=== PATIENT | male | born 2000 | race Caucasian/White ===

== ENCOUNTER 2022-07-13 18:45 | Inpatient (IN) | payer OTHER ==
[2022-07-13] MEDS ORDERED: fentaNYL 50 mcg/mL 1 mL Vial ONE ×2 (19:08→20:16)
[2022-07-13] MEDS ORDERED: CEFAZOLIN 2 GM VIAL ONE (19:08)
[2022-07-13 19:11] LABS: #Eosinphils 0.1 thou/uL (0.0-0.7); #Lymphocytes 1.8 thou/uL (1.20-3.40); #Monocytes 0.6 thou/uL (0.11-0.59); #Neutrophils 5.6 thou/uL (1.40-6.50); %Basophils 0.5 % (0.0-1.0); %Eosinophils 1.7 % (0.0-10.0); %Lymphocytes 21.9 % (21.0-51.0); %Monocytes 6.9 % (0.0-10.0); %Neutrophils 69.1 % (42.0-75.0); Mean Corpuscular HGB CONC 34.3 g/dL (32.0-36.0); Mean Corpuscular Hemoglobin 30.8 pg (27.0-31.0); Mean Corpuscular Volume 89.8 fl (78.0-98.0); Mean Platelet Volume 7.8 fL (7.4-10.4); Platelet Count 208 10x3/uL (130-400); RBC Distribution Width 11.3 % (11.5-14.5); Red Blood Cell (RBC) Count 4.54 mill/uL (4.70-6.10); White Blood Cell (WBC) Count 8.1 10x3/uL (4.8-10.8)
[2022-07-13 19:24] LABS: PTT 23.9 sec (22.9-36.1); Prothrombin Time 13.4 sec (12.0-14.7)
[2022-07-13 19:30] LABS: ALT (SGPT) 22 U/L (8-55); AST (SGOT) 27 U/L (5-34); Albumin 4.7 g/dL (3.5-5.0); Alkaline Phosphatase 76 U/L (40-110); Anion Gap 15 mmol/L (10-20); BUN (Urea Nitrogen) 13 mg/dL (8.9-20.6); Bilirubin, Total 0.3 mg/dL (0.2-1.2); CK (CPK) 318 U/L (30-200); Calc. Creatinine Clearance 0 mL/min (70-130); Calcium 9.9 mg/dL (7.8-10.44); Carbon Dioxide 26 mmol/L (22-29); Chloride 104 mmol/L (98-107); Estimated GFR 87; Globulin 2.9 g/dL (2.4-3.5); Glucose 114 mg/dL (70-105); Potassium 3.8 mmol/L (3.5-5.1); Protein, Total 7.6 g/dL (6.0-8.3); Sodium 141 mmol/L (136-145)
[2022-07-13] MEDS ORDERED: hydrALAZINE 20 MG/ML VIAL SLOW IVP PRN (20:17)
[2022-07-13] MEDS ORDERED: Dextrose 50% Abboject 50 ML SYRINGE SLOW IVP PRN (20:17)
[2022-07-13] MEDS ORDERED: Dextrose 5% in Water 1,000 ML IV PRN (20:17)
[2022-07-13] MEDS ORDERED: Morphine 4 MG/ML VIAL SLOW IVP PRN (20:17)
[2022-07-13] MEDS ORDERED: Ondansetron PF 4 MG/2 ML Vial IVP PRN (20:17)
[2022-07-13] MEDS ORDERED: traMADol HCl 50 MG TAB PO PRN ×2 (20:19)
[2022-07-13] MEDS ORDERED: Cyclobenzaprine 10 MG TAB PO PRN (20:19)
[2022-07-13] MEDS ORDERED: Sodium Chloride 0.9% 1,000 ML IV SCH (20:30)
[2022-07-13] MEDS: Ibuprofen 200 MG TAB PO SCH (23:12)
[2022-07-13] MEDS: Gabapentin 300 MG CAP PO SCH (23:12)
[2022-07-13] MEDS: Senokot S 8.6-50 MG TAB PO SCH (23:14)
[2022-07-13] MEDS: Famotidine 20 MG TAB PO SCH (23:14)
[2022-07-13] MEDS: Acetaminophen 500 MG TAB PO SCH (23:15)
[2022-07-13 23:28] VITALS: BMI 24.3
[2022-07-14] MEDS: CEFAZOLIN 2 GM in Sodium Chloride 0.9% 100 ML IVPB SCH ×2 (03:55→16:23)
[2022-07-14] MEDS: Acetaminophen 500 MG TAB PO SCH ×3 (05:50→16:23)
[2022-07-14] MEDS: Ibuprofen 200 MG TAB PO SCH ×2 (05:51→15:18)
[2022-07-14 06:50] LABS: #Eosinphils 0.1 thou/uL (0.0-0.7); #Lymphocytes 2.1 thou/uL (1.20-3.40); #Monocytes 0.9 thou/uL (0.11-0.59); #Neutrophils 5.7 thou/uL (1.40-6.50); %Basophils 0.5 % (0.0-1.0); %Eosinophils 0.9 % (0.0-10.0); %Lymphocytes 23.7 % (21.0-51.0); %Monocytes 10.2 % (0.0-10.0); %Neutrophils 64.6 % (42.0-75.0); Hemoglobin 13.3 g/dL (14.0-18.0); Mean Corpuscular HGB CONC 34.9 g/dL (32.0-36.0); Mean Corpuscular Hemoglobin 31.2 pg (27.0-31.0); Mean Corpuscular Volume 89.3 fl (78.0-98.0); Mean Platelet Volume 7.9 fL (7.4-10.4); Platelet Count 189 10x3/uL (130-400); RBC Distribution Width 11.3 % (11.5-14.5); Red Blood Cell (RBC) Count 4.28 mill/uL (4.70-6.10); White Blood Cell (WBC) Count 8.9 10x3/uL (4.8-10.8)
[2022-07-14 07:12] LABS: Anion Gap 12 mmol/L (10-20); BUN (Urea Nitrogen) 11 mg/dL (8.9-20.6); Calc. Creatinine Clearance 140 mL/min (70-130); Calcium 8.9 mg/dL (7.8-10.44); Carbon Dioxide 26 mmol/L (22-29); Chloride 106 mmol/L (98-107); Estimated GFR 107; Glucose 94 mg/dL (70-105); Magnesium 2.2 mg/dL (1.6-2.6); Phosphorus 5.7 mg/dL (2.3-4.7); Potassium 4.3 mmol/L (3.5-5.1); Sodium 140 mmol/L (136-145)
[2022-07-14] MEDS ORDERED: CEFAZOLIN 2 GM in Sodium Chloride 0.9% 100 ML IVPB SCH (08:00)
[2022-07-14] MEDS: Senokot S 8.6-50 MG TAB PO SCH (08:13)
[2022-07-14] MEDS: Gabapentin 300 MG CAP PO SCH ×2 (08:18→16:24)
[2022-07-14] MEDS: Famotidine 20 MG TAB PO SCH (08:19)
[2022-07-14] MEDS ORDERED: Polyethylene Glycol 3350 17 GM Packet PO SCH (09:00)
[2022-07-14] MEDS ORDERED: CEFAZOLIN 2 GM VIAL ONE (11:50)
[2022-07-14] MEDS ORDERED: Sodium Chloride 0.9% 100 ML ONE (11:51)
[2022-07-14] MEDS ORDERED: Boostrix 0.5 ML (Tdap) VIAL (>/=7 yrs of age) IM ONE (12:00)
[2022-07-14] MEDS ORDERED: Neomycin-Polymyxin 1 ML AMP ONE (13:34)
[2022-07-14] MEDS ORDERED: fentaNYL PF 100 MCG/2 ML SYRINGE ONE (13:35)
[2022-07-14] MEDS ORDERED: Midazolam HCl 2 mg/2 ml Vial ONE (13:35)
[2022-07-14] MEDS ORDERED: Ondansetron PF 4 MG/2 ML Vial ONE (13:55)
[2022-07-14] MEDS ORDERED: Dexamethasone 20 MG/5 ML VIAL ONE (13:55)
[2022-07-14] MEDS ORDERED: PROPOFOL 200 MG/20 ML VIAL ONE (13:55)
[2022-07-14] MEDS ORDERED: Lidocaine 1% PF 5 ML VIAL ONE (13:55)
[2022-07-14] MEDS ORDERED: Promethazine HCl 25 MG/ML VIAL IM PRN (14:07)
[2022-07-14] MEDS ORDERED: HYDROmorphone 2 MG/ML VIAL SLOW IVP PRN (14:07)
[2022-07-14] MEDS ORDERED: Ondansetron HCl/PF 4 MG/2 ML Vial IVP PRN (14:07)
[2022-07-14 14:28] VITALS: BP 117/73; TEMP 98.4
[2022-07-14] MEDS ORDERED: fentaNYL 50 mcg/mL 1 mL Vial ONE ×2 (15:16→15:32)
== END 2022-07-14 19:10 | disposition home or self-care (01) | DRG 983 ==
LOC: ERS 18:45 → SURG B 20:17
PROVIDERS: ADMIT Surgery; ATTEND Surgery
PROC: 0QBH0ZZ Excision of Left Tibia, Open Approach (ICD-10-PCS; principal; 2022-07-13)
DX: S81.812A Laceration without foreign body, left lower leg, initial encounter (principal); V86.55XA Driver of 3- or 4- wheeled all-terrain vehicle (ATV) injured in nontraffic accident, initial encounter; Z91.010 Allergy to peanuts
CPT/HCPCS: 36415; 71045; 72170; 80048; 80053; 82550; 83735; 84100; 85025; 85610; 85730; 86850; 86900; 86901; 96365; 96375; 96376; J1100; J2250; J2270; J2405; J2704; J3010; J3490; J7050